=== PATIENT | male | born 1940 | race Caucasian/White ===

== ENCOUNTER 2016-04-13 09:42 | Inpatient (IN) | payer MEDICARE ==
[~2016-04-13] VITALS: Ht 165.1 cm; Wt 60.9 kg
[2016-04-13 10:30] LABS: BASOPHIL 0.1 % (0-2); EOSINOPHIL 1.4 % (0-7); HCT 50.1 % (42.0-52.0); LYMPHOCYTE 5.3 % (15-48); MCH 31.8 pg (25.0-31.0); MCHC 31.9 g/dL (32.0-36.0); MCV 99.6 fL (78.0-100.0); MONOCYTE 3.9 % (0-12); MPV 9.4 fL (6.0-9.5); NEUTROPHIL 89.3 % (41-80); PLT 216 K/uL (150-400); RBC 5.03 M/uL (4.70-6.00); RDW 14.3 % (11.5-14.0)
[2016-04-13 10:40] LABS: INR 1.11 (0.9-1.2); PROTHROMBIN TIME 13.9 SECONDS (11.7-14.0); PTT 22.7 SECONDS (23.2-31.4)
[2016-04-13 10:47] LABS: BILIRUBIN 1+ mg/dL (NEGATIVE); BLOOD NEGATIVE Ery/uL (NEGATIVE); CLARITY CLEAR (CLEAR); COLOR YELLOW (YELLOW); GLUCOSE (U) NORMAL (NORMAL); KETONE (U) NEGATIVE (NEGATIVE); LEUKOCYTES NEGATIVE Leu/uL (NEGATIVE); NITRITE NEGATIVE (NEGATIVE); PROTEIN 2+ mg/dL (NEGATIVE); SPECIFIC GRAVITY >=1.030 (1.001-1.030); pH 5.5 (5.0-9.0)
[2016-04-13 10:50] LABS: TROPONIN T < 0.010 ng/mL
[2016-04-13 10:52] LABS: ALBUMIN 3.8 g/dL (3.4-4.8); BILIRUBIN - TOTAL 0.5 mg/dL (0.1-1.0); CREATININE 0.6 mg/dL (0.7-1.2); GLOBULIN (CALCULATION) 3.1 g/dL (2.2-4.2); LACTIC ACID 3.3 mmol/L (0.5-2.2); POTASSIUM 4.5 mmol/L (3.5-5.1); TOTAL PROTEIN 6.9 g/dL (6.4-8.3)
[2016-04-13 10:53] LABS: BACTERIA 2+; MUCOUS TRACE; URINARY WBC 20-50
[2016-04-13 10:54] LABS: AMORPHOUS URATES CRYSTALS TRACE
[2016-04-14 04:20] LABS: ALBUMIN 3.1 g/dL (3.4-4.8); BILIRUBIN - DIRECT 0.2 mg/dL (0.0-0.2); BILIRUBIN - TOTAL 0.4 mg/dL (0.1-1.0); CREATININE 0.7 mg/dL (0.7-1.2); GLOBULIN (CALCULATION) 2.5 g/dL (2.2-4.2); POTASSIUM 4.2 mmol/L (3.5-5.1); TOTAL PROTEIN 5.6 g/dL (6.4-8.3)
[2016-04-14 04:47] LABS: HCT 44.1 % (42.0-52.0); HGB 14.4 g/dl (13.2-18.0); MCH 31.6 pg (25.0-31.0); MCHC 32.7 g/dL (32.0-36.0); MCV 96.7 fL (78.0-100.0); MPV 9.6 fL (6.0-9.5); RBC 4.56 M/uL (4.70-6.00); RDW 14.5 % (11.5-14.0); WBC 9.3 K/uL (4.0-10.5)
[2016-04-14 17:14] LABS: CREATININE 0.6 mg/dL (0.7-1.2); POTASSIUM 4.3 mmol/L (3.5-5.1)
[2016-04-15 05:03] LABS: HCT 42.7 % (42.0-52.0); MCH 31.3 pg (25.0-31.0); MCHC 32.8 g/dL (32.0-36.0); MCV 95.5 fL (78.0-100.0); MPV 9.3 fL (6.0-9.5); RBC 4.47 M/uL (4.70-6.00); RDW 14.7 % (11.5-14.0); WBC 16.1 K/uL (4.0-10.5)
[2016-04-15 05:21] LABS: CREATININE 0.6 mg/dL (0.7-1.2); POTASSIUM 3.7 mmol/L (3.5-5.1)
[2016-04-16 03:25] LABS: MCHC 33.3 g/dL (32.0-36.0); MCV 96.1 fL (78.0-100.0); MPV 9.3 fL (6.0-9.5); RBC 4.37 M/uL (4.70-6.00); RDW 14.9 % (11.5-14.0); WBC 16.2 K/uL (4.0-10.5)
[2016-04-16 03:38] LABS: ALBUMIN 3.2 g/dL (3.4-4.8); BILIRUBIN - TOTAL 0.2 mg/dL (0.1-1.0); CREATININE 0.7 mg/dL (0.7-1.2); POTASSIUM 4.4 mmol/L (3.5-5.1); TOTAL PROTEIN 5.2 g/dL (6.4-8.3)
[2016-04-16 09:07] LABS: MAGNESIUM 2.12 mg/dL (1.40-2.10); PHOSPHORUS 2.8 mg/dL (2.7-4.5)
[2016-04-17 04:58] LABS: BASOPHIL 0.1 % (0-2); EOSINOPHIL 0.1 % (0-7); HCT 43.4 % (42.0-52.0); HGB 14.1 g/dl (13.2-18.0); LYMPHOCYTE 1.7 % (15-48); MCH 31.6 pg (25.0-31.0); MCHC 32.5 g/dL (32.0-36.0); MCV 97.3 fL (78.0-100.0); MPV 9.7 fL (6.0-9.5); NEUTROPHIL 94.1 % (41-80); PLT 239 K/uL (150-400); RBC 4.46 M/uL (4.70-6.00); RDW 15.1 % (11.5-14.0)
[2016-04-17 05:01] LABS: WBC 15.4 K/uL (4.0-10.5)
[2016-04-17 05:02] LABS: CREATININE 0.6 mg/dL (0.7-1.2); POTASSIUM 4.6 mmol/L (3.5-5.1)
[2016-04-18 04:02] LABS: BASOPHIL 0.1 % (0-2); EOSINOPHIL 0 % (0-7); HCT 45.1 % (42.0-52.0); HGB 14.6 g/dl (13.2-18.0); LYMPHOCYTE 1.3 % (15-48); MCH 31.5 pg (25.0-31.0); MCHC 32.4 g/dL (32.0-36.0); MCV 97.2 fL (78.0-100.0); MONOCYTE 4.2 % (0-12); MPV 9.7 fL (6.0-9.5); NEUTROPHIL 94.4 % (41-80); PLT 200 K/uL (150-400); RBC 4.64 M/uL (4.70-6.00); RDW 15.2 % (11.5-14.0)
[2016-04-18 04:04] LABS: WBC 15.5 K/uL (4.0-10.5)
[2016-04-18 04:29] LABS: CREATININE 0.6 mg/dL (0.7-1.2); MAGNESIUM 2.39 mg/dL (1.40-2.10); PHOSPHORUS 2.8 mg/dL (2.7-4.5); POTASSIUM 5.1 mmol/L (3.5-5.1)
--- NOTE | 2016-04-18 13:45 | NUR ---
PT EXTUBATED AT 1305. AT BEDSIDE
[2016-04-19 03:52] LABS: HCT 49.2 % (42.0-52.0); HGB 15.8 g/dl (13.2-18.0); MCH 30.9 pg (25.0-31.0); MCHC 32.1 g/dL (32.0-36.0); MCV 96.1 fL (78.0-100.0); MPV 9.5 fL (6.0-9.5); RBC 5.12 M/uL (4.70-6.00); RDW 15.1 % (11.5-14.0); WBC 17.6 K/uL (4.0-10.5)
[2016-04-19 04:05] LABS: CREATININE 0.6 mg/dL (0.7-1.2); POTASSIUM 4.4 mmol/L (3.5-5.1)
== END 2016-04-20 22:06 | disposition expired | DRG 870 ==
LOC: FER 09:42 → FICU 13:30 → FMS 04-19 10:00
PROVIDERS: Emergency Medicine; Internal Medicine; Internal Medicine Nephrology; ADMIT Internal Medicine
PROC: 0BH17EZ Insertion of Endotracheal Airway into Trachea, Via Natural or Artificial Opening (ICD-10-PCS; principal; 2016-04-13)
PROC: 5A1955Z Respiratory Ventilation, Greater than 96 Consecutive Hours (ICD-10-PCS; principal; 2016-04-13)
PROC: 02HV33Z Insertion of Infusion Device into Superior Vena Cava, Percutaneous Approach (ICD-10-PCS; 2016-04-13)
DX: A41.9 Sepsis, unspecified organism (principal); J96.21 Acute and chronic respiratory failure with hypoxia; R40.20 Unspecified coma; I50.33 Acute on chronic diastolic (congestive) heart failure; J15.9 Unspecified bacterial pneumonia; I48.2 Chronic atrial fibrillation; I42.9 Cardiomyopathy, unspecified; I11.0 Hypertensive heart disease with heart failure; J96.22 Acute and chronic respiratory failure with hypercapnia; J44.0 Chronic obstructive pulmonary disease with (acute) lower respiratory infection; J44.1 Chronic obstructive pulmonary disease with (acute) exacerbation; E78.5 Hyperlipidemia, unspecified; M79.7 Fibromyalgia; I25.10 Atherosclerotic heart disease of native coronary artery without angina pectoris; F17.210 Nicotine dependence, cigarettes, uncomplicated; Z95.1 Presence of aortocoronary bypass graft; Z66 Do not resuscitate; R40.2434 Glasgow coma scale score 3-8, 24 hours or more after hospital admission; Z51.5 Encounter for palliative care
CPT/HCPCS: 31500; 36415; 36600; 70450; 71010; 71275; 80048; 80053; 80076; 80202; 81001; 82550; 82553; 82803; 83605; 83735; 84100; 84484; 85025; 85610; 85730; 87040; 87070; 87088; 87205; 92950; 93005; 94002; 94640; 94770; C9113; J0282; J1160; J1644; J1940; J1956; J2060; J2270; J2543; J2704; J2930; Q9967